=== PATIENT | female | born 1985 | race Two or more races ===

== ENCOUNTER → 2018-04-28 | Outpatient (CLI) | payer OTHER | LOC: FIMAGING 13:20 | PROVIDERS: ATTEND Nurse Practitioner Family | DX: N60.01 Solitary cyst of right breast (principal) ==

== ENCOUNTER 2018-12-28 23:13 | Inpatient (IN) | payer OTHER | END 2018-12-31 15:35 | disposition home or self-care (01) | LOC: FLD 23:13 → FOB 12-30 01:15 ==